=== PATIENT | male | born 1995 | race Caucasian/White ===

== ENCOUNTER 2020-05-08 19:45 | Emergency (ER) | payer OTHER ==
[2020-05-08] MEDS ORDERED: HYDROCODONE/ACETAMINOPHEN 5-325 MG TABLET PO ONE (20:03)
[2020-05-08] MEDS ORDERED: LIDOCAINE 1%/EPINEPHRINE INJ 20 ML VIAL INJ ONE (20:05)
--- NOTE | 2020-05-08 20:24 | ER Document Report ---
HPI - HPI Patient complains to provider of: Facial injury Time Seen by Provider: 05/08/20 19:58 Onset: This evening Onset/Duration: Sudden Quality of pain: Achy Pain Level: 2 Context: Patient states he was playing football and collided with another player [id number]. Patient with laceration to left cheek area. Patient denies any loss of consciousness, nausea or vomiting. Associated Symptoms: Other - Left facial laceration. denies: Nausea, Vomiting Exacerbated by: Denies Relieved by: Denies Similar symptoms previously: No Recently seen / treated by doctor: No - ROS ROS below otherwise negative: Yes Systems Reviewed and Negative: Yes All other systems reviewed and negative - NEURO Neurology: DENIES: Vision blurred, Dizzinesss / Vertigo - RESPIRATORY Respiratory: DENIES: Coughing - GASTROINTESTINAL Gastrointestinal: DENIES: Nausea, Patient vomiting - MUSCULOSKELETAL Musculoskeletal: DENIES: Extremity pain, Back Pain, Neck Pain - DERM Skin Color: Normal Skin Problems: Laceration Past Medical History - General Information source: Patient - Social History Smoking Status: Current Every Day Smoker Frequency of alcohol use: None Drug Abuse: None Occupation: Active duty Lives with: Family Family History: Reviewed & Not Pertinent - Medical History Medical History: Negative Surgical Hx: Negative - Immunizations Immunizations up to date: Yes Vertical Provider Document - CONSTITUTIONAL Agree With Documented VS: Yes Exam Limitations: No Limitations General Appearance: WD/WN, No Apparent Distress - HEENT HEENT: Normal ENT Exam, Normocephalic, PERRLA Notes: Extraocular movements intact, patient with 4 cm laceration to the left cheek area. No active bleeding. No hemotympanum - NECK Neck: Normal Inspection, Supple. negative: Lymphadenopathy-Left, Lymphadenopathy-Right Notes: No cervical midline tenderness step-off or deformity - RESPIRATORY Respiratory: Breath Sounds Normal, No Respiratory Distress - CARDIOVASCULAR Cardiovascular: Regular Rate, Regular Rhythm - BACK Back: Normal Inspection - MUSCULOSKELETAL/EXTREMETIES Musculoskeletal/Extremeties: APRIL SAHA - NEURO Level of Consciousness: Awake, Alert, Appropriate Motor/Sensory: No Motor Deficit, No Sensory Deficit - DERM Integumentary: Warm, Dry, Laceration - 4 cm Laceration to left cheek Course - Re-evaluation Re-evalutation: 05/08/20 20:[address] owens regarding patient CT report findings. Recommends placing patient on antibiotics such as Augmentin and referring to ENT on outpatient basis. - Vital Signs Vital signs: Temp Pulse Resp BP Pulse Ox 98.3 F 107 H 16 130/74 H 98 05/08/20 19:50 05/08/20 19:50 05/08/20 19:50 05/08/20 19:50 05/08/20 19:50 - Diagnostic Test Radiology reviewed: Reports reviewed Procedures - Laceration/Wound Repair Left Face Wound length (cm): 4 Wound's Depth, Shape: Linear Laceration pre-procedure: Shur-Clens applied Anesthetic type: 1% Lidocaine w/epi Wound explored: Clean Wound Repaired With: Sutures Suture Size/Type: 6:0, Ethilon Number of Sutures: 8 Layer Closure?: No Post-procedure NV exam normal: Yes Complications: No Adult Head Front/Back picture: 1 - lac Discharge - Discharge Clinical Impression: Left maxillary sinus fracture Head injury Qualifiers: Encounter type: initial encounter Qualified Code(s): S09.90XA - Unspecified injury of head, initial encounter Facial laceration Qualifiers: Encounter type: initial encounter Qualified Code(s): S01.81XA - Laceration without foreign body of other part of head, initial encounter Condition: Stable Disposition: HOME, SELF-CARE Instructions: Facial Bone Fracture, Undisplaced ([facility]), Facial Laceration ([facility]), Head Injury Precautions ([facility]) Additional Instructions: Return immediately for any new or worsening symptoms Followup with your primary care provider, call tomorrow to make a followup appointment Prescriptions: Amoxicillin/Potassium Clav [Augmentin 875-125 Tablet] 1 tab PO BID #20 tab Hydrocodone/Acetaminophen [Wayne 5-325 mg Tablet] 1 tab PO Q6 PRN #12 tablet PRN Reason: Referrals: [facility] [Provider Group] - Follow up tomorrow
--- NOTE | 2020-05-08 20:54 | RADIOLOGY REPORT (SQ) ---
EXAM DESCRIPTION: CT facial bones without contrast CLINICAL HISTORY: 25 years Male, facial injury,collided during football COMPARISON: None. TECHNIQUE: Axial images of the facial bones were performed without the use of intravenous contrast, with sagittal and coronal reformatted images. This exam was performed according to our departmental dose-optimization program which includes use of Automated Exposure Control, adjustment of the mA and/or kV according to patient size and/or use of iterative reconstruction technique. FINDINGS: There is comminuted fracture of the anterior wall of the left maxillary sinus. There is a small air/blood level within the left maxillary sinus. The orbits appear intact. IMPRESSION: Fracture of the anterior wall of the left maxillary sinus.
[2020-05-08] MEDS ORDERED: AMOXICILLIN TR/POT CLAVULANATE 875-125 MG TAB PO ONE (20:59)
[2020-05-08 23:07] VITALS: BP 128/65
== END 2020-05-08 21:49 | disposition home or self-care (01) ==
LOC: ER 19:45
PROC: 0HQ1XZZ Repair Face Skin, External Approach (ICD-10-PCS; principal; 2020-05-08)
DX: S01.412A Laceration without foreign body of left cheek and temporomandibular area, initial encounter (principal); S02.40DA Maxillary fracture, left side, initial encounter for closed fracture; W51.XXXA Accidental striking against or bumped into by another person, initial encounter; Y93.61 Activity, american tackle football; F17.200 Nicotine dependence, unspecified, uncomplicated; S09.90XA Unspecified injury of head, initial encounter
CPT/HCPCS: 99284; 70486; 12013; J3490 ×2